=== PATIENT | male | born 1995 | race African-American/Black ===

== ENCOUNTER 2018-12-18 07:10 | Inpatient (IN) | payer OTHER ==
[~2018-12-18] VITALS: Ht 170.2 cm; Wt 65.0 kg
[2018-12-18 08:24] LABS: ANION GAP 7 mmol/L (8-16); CALCIUM, TOTAL 9.3 mg/dL (8.8-10.5); CARBON DIOXIDE 26 mmol/L (22-29); CHLORIDE 108 mmol/L (98-107); CREATININE 1.15 mg/dL (0.60-1.30); GLOMERULAR FILTR. RATE CALC > 60 mL/min (>60); GLUCOSE,RANDOM 101 mg/dL (70-110); POTASSIUM 3.9 mmol/L (3.5-5.1); SODIUM SERUM 141 mmol/L (136-145); UREA NITROGEN, BLOOD 18 mg/dL (7-18)
[2018-12-18 08:25] LABS: BASOPHILS % (AUTO) 0.6 % (0.0-2.0); EOSINOPHILS % (AUTO) 0.4 % (1.0-6.0); HEMATOCRIT 44.4 % (41-53); HEMOGLOBIN 15.1 g/dL (13.5-17.5); LYMPHOCYTES # (AUTO) 1.1 K/uL (1.0-4.8); LYMPHOCYTES % (AUTO) 23.3 % (22.0-44.0); MEAN CORPUSCULAR HEMOGLOBIN 30.4 pg (26.0-34.0); MEAN CORPUSCULAR HGB CONC 33.9 G/dL (31.0-37.0); MEAN CORPUSCULAR VOLUME 90 fL (80-100); MONOCYTES # (AUTO) 0.5 K/uL (0.1-1.0); MONOCYTES % (AUTO) 9.7 % (2.0-9.0); NEUTROPHILS # (AUTO) 3.1 K/uL (1.8-7.7); PLATELET COUNT (AUTO) 241 K/uL (150-450); RED BLOOD CELL COUNT(AUTO) 4.96 MIL/uL (4.50-5.90); RED CELL DISTRIBUTION WIDTH 13.1 % (11.5-14.5)
[2018-12-18 08:30] LABS: ALANINE AMINOTRANSFERASE 17 U/L (12-78); ALBUMIN 4.1 g/dL (3.4-5.0); ALKALINE PHOSPHATASE 48 U/L (46-116); ASPARTATE AMINOTRANSFERASE 21 U/L (15-37); BILIRUBIN,TOTAL 0.5 mg/dL (0.1-1.0); TOTAL PROTEIN, SERUM 6.8 g/dL (6.4-8.2)
[2018-12-18] MEDS ORDERED: LORazepam 2 MG TABLET PO PRN (09:45)
[2018-12-18] MEDS ORDERED: ZOLPIDEM TARTRATE 10 MG TABLET PO PRN (09:45)
[2018-12-18] MEDS ORDERED: MAGNESIUM HYDROXIDE SUSPENSION 30 ML UDCUP PO PRN (14:15)
[2018-12-18] MEDS ORDERED: NICOTINE 14 MG/24 HOUR PATCH TD PRN (14:15)
[2018-12-18] MEDS ORDERED: DOCUSATE SODIUM 100 MG CAPSULE PO PRN (14:15)
[2018-12-18] MEDS ORDERED: IBUPROFEN 400 MG TABLET PO PRN (14:15)
[2018-12-18] MEDS ORDERED: GuaiFENesin/D-METHORPHAN [SUGAR-FREE] 200-20MG/10 ML SYRUP UDCUP PO PRN (14:15)
[2018-12-18] MEDS ORDERED: PETROLATUM,WHITE 28 GM JELLY TP PRN (14:15)
[2018-12-18] MEDS ORDERED: MAG HYDROX/AL HYDROX/SIMETH ES 30 ML SUSPENSION UDCUP PO PRN (14:15)
[2018-12-18] MEDS ORDERED: ALBUTEROL SULFATE HFA 90 MCG/PUFF 8 GM INHALER IH PRN (14:15)
[2018-12-18] MEDS ORDERED: ONDANSETRON HCL 4 MG TABLET PO PRN (14:15)
[2018-12-18] MEDS ORDERED: ACETAMINOPHEN 325 MG TABLET PO PRN (14:15)
[2018-12-18] MEDS ORDERED: LOPERAMIDE HCL 2 MG CAPSULE PO PRN (14:15)
[2018-12-18] MEDS ORDERED: CloNIDine HCL 0.1 MG TABLET PO PRN (14:15)
[2018-12-18] MEDS: BuPROPion HCL XL 150 MG ER TABLET PO SCH (14:38)
[2018-12-18 14:45] VITALS: BP 142/99
[2018-12-18 16:40] VITALS: BP 137/80
[2018-12-19 07:17] LABS: CHOL/HDL RATIO 1.8 (4.2-7.3)
[2018-12-19] MEDS: BuPROPion HCL XL 150 MG ER TABLET PO SCH (08:46)
[2018-12-19 08:49] VITALS: BP 100/57
[2018-12-19] MEDS: OLANZapine 5 MG TABLET PO SCH (16:25)
[2018-12-19 17:35] VITALS: BP 126/73
[2018-12-20 08:36] VITALS: BP 133/86
[2018-12-20] MEDS: BuPROPion HCL XL 150 MG ER TABLET PO SCH (09:04)
[2018-12-20] MEDS: OLANZapine 5 MG TABLET PO SCH ×2 (09:04→16:51)
[2018-12-20 19:19] VITALS: BP 128/75
[2018-12-21] MEDS: BuPROPion HCL XL 150 MG ER TABLET PO SCH (08:34)
[2018-12-21] MEDS: OLANZapine 5 MG TABLET PO SCH (08:34)
[2018-12-21 09:10] VITALS: BP 141/84
[2018-12-21] MEDS ORDERED: BUPR-93 PO (12:07)
[2018-12-21] MEDS ORDERED: OLAN5TAB2 PO (12:08)
== END 2018-12-21 12:35 | disposition home or self-care (01) | DRG 885 ==
LOC: EMS 07:10 → 3EX 09:59
PROVIDERS: ADMIT Psychiatry & Neurology Psychiatry; ATTEND Psychiatry & Neurology Psychiatry
DX: F32.1 Major depressive disorder, single episode, moderate (principal); R45.851 Suicidal ideations; G44.209 Tension-type headache, unspecified, not intractable; F12.10 Cannabis abuse, uncomplicated; Z71.51 Drug abuse counseling and surveillance of drug abuser
CPT/HCPCS: G0378; G0480